=== PATIENT | female | born 2000 | race Caucasian/White ===

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

== ENCOUNTER 2019-01-12 18:08 | Emergency (ER) | payer OTHER ==
--- NOTE | 2019-01-12 18:11 | ERPHSYRPT ---
- History of Present Illness Time Seen by Provider: 01/12/19 18:11 Source: patient, family Exam Limitations: no limitations Physician History: 18 y/o right handed white female presents with 1 week h/o right wrist pain. no direct trauma. Occurred: last week Method of Injury: other (no injury) Quality: aching, other (numbness) Severity of Pain-Max: mild Severity of Pain-Current: mild Extremities Pain Location: wrist: right Modifying Factors: Improves With: movement Associated Symptoms: none Allergies/Adverse Reactions: No Known Drug Allergies Allergy (Verified 12/24/18 18:24) Hx Tetanus, Diphtheria Vaccination/Date Given: Yes Hx Influenza Vaccination/Date Given: No Hx Pneumococcal Vaccination/Date Given: No - Review of Systems Constitutional: No Symptoms Eyes: No Symptoms Ears, Nose, & Throat: No Symptoms Respiratory: No Symptoms Cardiac: No Symptoms Abdominal/Gastrointestinal: No Symptoms Genitourinary Symptoms: No Symptoms Musculoskeletal: Joint Pain (right wrist) Skin: No Symptoms Neurological: No Symptoms Psychological: No Symptoms Endocrine: No Symptoms Hematologic/Lymphatic: No Symptoms Immunological/Allergic: No Symptoms All Other Systems: Reviewed and Negative - Past Medical History Pertinent Past Medical History: Yes Neurological History: No Pertinent History ENT History: No Pertinent History Cardiac History: No Pertinent History Respiratory History: Asthma Endocrine Medical History: Hypothyroidism Musculoskeletal History: No Pertinent History GI Medical History: No Pertinent History History: No Pertinent History Psycho-Social History: No Pertinent History Female Reproductive Disorders: No Pertinent History - Past Surgical History Past Surgical History: Yes Neuro Surgical History: No Pertinent History Cardiac: No Pertinent History Respiratory: No Pertinent History Gastrointestinal: Cholecystectomy Genitourinary: No Pertinent History Musculoskeletal: No Pertinent History Female Surgical History: Section - Social History Smoking Status: Never smoker Exposure to second hand smoke: Yes Drug Use: none Patient Lives Alone: No - Nursing Vital Signs Nursing Vital Signs: Initial Vital Signs Temperature 99.0 F 01/12/19 18:16 Pulse Rate 85 01/12/19 18:16 Respiratory Rate 18 01/12/19 18:16 Blood Pressure 116/69 01/12/19 18:16 O2 Sat by Pulse Oximetry 95 01/12/19 18:16 Pain Scale Pain Intensity 9 - Physical Exam General Appearance: no apparent distress, alert, anxiety Eyes, Ears, Nose, Throat Exam: normal ENT inspection, moist mucous membranes Neck Exam: normal inspection, non-tender, supple, full range of motion Cardiovascular/Respiratory Exam: chest non-tender Abdominal Exam: non-tender Back Exam: normal inspection, normal range of motion, No CVA tenderness, No vertebral tenderness Shoulder Exam: normal inspection, non-tender, no evidence of injury, normal ROM Elbow/Forearm Exam: normal inspection, non-tender, no evidence of injury, normal ROM Wrist Exam: normal inspection, no evidence of injury, normal ROM, bone tenderness, soft tissue tenderness Hand Exam: normal inspection, non-tender, no evidence of injury, normal ROM Neuro/Tendon Exam: normal sensation, normal motor functions, normal tendon functions Mental Status Exam: alert, oriented x 3, cooperative Skin Exam: normal color, warm, dry SpO2 Interpretation: normal O2 Delivery: Room Air Ordered Tests: Active Orders 24 hr Category Date Time Status WRIST (MIN 3 VIEWS) Stat Exams 01/12/19 19:57 Taken - Progress Progress: unchanged Progress Note: 01/12/19 20:23 xray right wrist-no acute fx or dislocation Counseled pt/family regarding: diagnosis, need for follow-up, rad results - Departure Departure Disposition: Home Clinical Impression: Wrist pain, right Condition: Stable Critical Care Time: No Referrals: YVETTE GOMEZ MD [Primary Care Provider] - Additional Instructions: ice pack to area 3 times daily for 2 days. follow up with primary doctor for persistent symptoms Prescriptions: Cyclobenzaprine HCl 10 mg [Cyclobenzaprine 10 MG] 10 mg PO TID #10 tablet Naproxen 500 mg [Naprosyn 500 MG] 500 mg PO BID #10 tablet
[2019-01-12 19:11] VITALS: PULSE 80; O2SAT 100
[2019-01-12] MEDS ORDERED: Cyclobenzaprine 10 MG PO ONE (20:25)
[2019-01-12] MEDS ORDERED: Naprosyn 500 MG PO ONE (20:26)
[2019-01-12] MEDS ORDERED: Cyclobenzaprine 10 MG ONE (20:31)
[2019-01-12 21:40] VITALS: BP 116/67
--- NOTE | 2019-01-13 09:19 | XRAY ---
Indication: Medial bruising. No known injury. Comparison: None 3 views of the right wrist obtained. No bony, articular, or soft tissue abnormalities.
== END 2019-01-12 21:10 | disposition home or self-care (01) ==
LOC: ED 18:08
DX: M25.531 Pain in right wrist (principal); R20.0 Anesthesia of skin
CPT/HCPCS: 73110; 99284; A9270-GY

== ENCOUNTER 2019-01-19 10:17 | Emergency (ER) | payer OTHER ==
--- NOTE | 2019-01-19 11:29 | ERPHSYRPT ---
- History of Present Illness Time Seen by Provider: 01/19/19 10:50 Source: patient Exam Limitations: clinical condition Patient Subjective Stated Complaint: states began having some vaginal bleeding two days ago. was seen in [facility] and had blood work done. today woke up with increased vaginal bleeding and some slight brown discharge. also having some lower abd cramping today Triage Nursing Assessment: ambulated to room per self. skin w/d, color normal, resp easy. abd soft. small amt brown discharge noted on paper after patient had voided. Physician History: PATIENT IS A -2, PARA-1, 7-8 WEEKS GESTATION, COMPLAINS OF VAGINAL BLEEDING WITH LOWER ABDOMINAL CRAMPING OVER THE PAST 2 DAYS, EVALUATED AT CLINIC YESTERDAY WITH A QUANTITATIVE SERUM CONSISTENT WITH 7-8 GESTATION. DENIES NAUSEA, EMESIS, PASSAGE OF CLOTS OR TISSUE. UNSURE OF LAST MENSTRUAL, HAD AN EPISODE OF VAGINAL BLEEDING 2 WEEKS AGO. Timing/Duration: day(s) Activites at Onset: none Quality: aching, cramping Onset Location: pelvic pain Pain Radiation: none Severity of Pain-Max: mild Severity of Pain-Current: mild Prior abdominal problems: none Sexual intercourse history: non-contributory Modifying Factors: Improves With: nothing Allergies/Adverse Reactions: No Known Drug Allergies Allergy (Verified 01/19/19 10:34) Home Medications: No Reportable Medications [No Reported Medications] 01/19/19 [History] Hx Tetanus, Diphtheria Vaccination/Date Given: No Hx Influenza Vaccination/Date Given: Yes Hx Pneumococcal Vaccination/Date Given: No - Review of Systems Constitutional: No Fever, No Chills Eyes: No Symptoms Ears, Nose, & Throat: No Symptoms Respiratory: No Cough, No Dyspnea Cardiac: No Symptoms, No Chest Pain, No Edema, No Syncope Abdominal/Gastrointestinal: Abdominal Pain, No Nausea, No Vomiting, No Diarrhea Genitourinary Symptoms: Vaginal Bleeding, No Dysuria Musculoskeletal: No Symptoms, No Back Pain, No Neck Pain Skin: No Rash Neurological: No Dizziness, No Focal Weakness, No Sensory Changes Psychological: No Symptoms Endocrine: No Symptoms All Other Systems: Reviewed and Negative - Past Medical History Pertinent Past Medical History: Yes Neurological History: No Pertinent History ENT History: No Pertinent History Cardiac History: No Pertinent History Respiratory History: Asthma Endocrine Medical History: Hypothyroidism Musculoskeletal History: No Pertinent History GI Medical History: No Pertinent History History: No Pertinent History Psycho-Social History: Depression Female Reproductive Disorders: No Pertinent History - Past Surgical History Past Surgical History: Yes Neuro Surgical History: No Pertinent History Cardiac: No Pertinent History Respiratory: No Pertinent History Gastrointestinal: Cholecystectomy Genitourinary: No Pertinent History Musculoskeletal: No Pertinent History Female Surgical History: Section - Social History Smoking Status: Never smoker Exposure to second hand smoke: No Drug Use: none Patient Lives Alone: No - Female History Hx Last Menstrual Period: 01/04/2019 Hx Now: Yes - Nursing Vital Signs Nursing Vital Signs: Initial Vital Signs Temperature 97.5 F 01/19/19 10:20 Pulse Rate 70 01/19/19 10:20 Respiratory Rate 16 01/19/19 10:20 Blood Pressure 121/67 01/19/19 10:20 O2 Sat by Pulse Oximetry 100 01/19/19 10:20 Pain Scale Pain Intensity 2 - Physical Exam General Appearance: no apparent distress, alert Eye Exam: PERRL/EOMI, eyes nml inspection Ears, Nose, Throat Exam: normal ENT inspection, TMs normal, pharynx normal, moist mucous membranes Neck Exam: normal inspection, non-tender, supple, full range of motion Respiratory Exam: normal breath sounds, lungs clear, No respiratory distress Cardiovascular Exam: regular rate/rhythm, normal heart sounds, normal peripheral pulses Gastrointestinal/Abdomen Exam: soft, normal bowel sounds, tenderness (MINIMAL SUPRAPUBIC TENDERNESS), No mass Pelvic Exam: normal external exam, vaginal bleeding (SCANT BLOOD OVER CERVIX, CERVICAL OS CLOSED, UTERINE SIZE 4-5 WEEKS, MOBILE NONTENDER.) Back Exam: normal inspection, normal range of motion, No CVA tenderness, No vertebral tenderness Extremity Exam: normal inspection, normal range of motion, pelvis stable Neurologic Exam: alert, oriented x 3, cooperative, finishing manager II-XII nml as tested, normal mood/affect, sensation nml, No motor deficits Skin Exam: normal color, warm, dry Lymphatic Exam: No adenopathy SpO2 Interpretation: normal SpO2: 97 - Radiology Ultrasound Exam Pelvis Ultrasound: discussed w/radiologist (CONSISTENT WITH THICKENED ENDOMETRIUM, NO EVIDENCE OF POLE) Ordered Tests: Active Orders 24 hr Category Date Time Status OB TRANSVAGINAL [US] Stat Exams 01/19/19 11:21 Ordered - Progress Progress Note: 01/19/19 11:34 [facility] 01/18/2019 QUANT HCG 84,702, URINE NEGATIVE 01/19/19 12:30, PELVIC ULTRASOUND CONSISTENT WITH THICKENED ENDOMETRIUM, NO EVIDENCE OF POLE Counseled pt/family regarding: diagnosis, need for follow-up, rad results - Departure Departure Disposition: Home Clinical Impression: Threatened in early Condition: Critical Care Time: No Referrals: YVETTE GOMEZ MD [Primary Care Provider] - Additional Instructions: CONSULT YOUR PRIMARY CARE PROVIDER FOR FOLLOWUP AND REPEAT SERUM TEST AND ULTRASOUND IN 1 WEEK.
--- NOTE | 2019-01-19 12:58 | XRAY ---
Indication: with vaginal bleeding. Two-dimensional transvaginal early OB ultrasound performed. Comparison: None Uterus is retroverted measuring 6.5 x 3.9 x 4.5 cm. Myometrium appears homogeneous. Endometrial stripe measures 8.4 mm in thickness. No endometrial cavity mass, gestational sac, or fluid collection. Right ovary measures 2.0 x 1.8 x 1.8 cm and the left measures 2.8 x 1.5 x 1.5 cm. Normal color perfusion bilaterally. 1.4 cm dominant left ovary cyst. No suspicious adnexal mass, free fluid, or evidence for ectopic . Impression: 1.5 cm left ovary cyst in a otherwise negative transvaginal early OB ultrasound. Specifically no evidence for intrauterine/ectopic .
[2019-01-19 12:59] VITALS: BP 111/80; PULSE 92; O2SAT 98
== END 2019-01-19 13:02 | disposition home or self-care (01) ==
LOC: ED 10:17
DX: O20.0 Threatened abortion (principal); Z3A.08 8 weeks gestation of pregnancy
CPT/HCPCS: 76817; 99284

== ENCOUNTER 2019-02-20 06:32 | Emergency (ER) | payer OTHER | END 2019-02-20 08:13 | disposition home or self-care (01) | LOC: ED 06:32 ==

== ENCOUNTER 2019-07-28 11:10 | Emergency (ER) | payer OTHER ==
--- NOTE | 2019-07-28 11:28 | ERPHSYRPT ---
- History of Present Illness Time Seen by Provider: 07/28/19 11:28 Source: patient Exam Limitations: no limitations Physician History: 19 y/o white female presents with sudden onset of right forehead shooting pain. denies injury. did not use any meds for pain. pt has a remote h/o head injury in 2012. occasionally gets twinges of head pain. no visual changes. denies this headache is the worst she has ever had. Timing/Duration: today, intermittent Quality: sharpness Head Pain Location: frontal (right) Severity of Pain-Max: mild Severity of Pain-Current: mild Recent Head Trauma: no recent headache/trauma, occasional headaches Modifying Factors: Improves With: other (nothing) Previous symptoms: same symptoms as today Allergies/Adverse Reactions: No Known Drug Allergies Allergy (Verified 07/28/19 11:33) Home Medications: No Reportable Medications [No Reported Medications] 07/28/19 [History] Hx Tetanus, Diphtheria Vaccination/Date Given: No Hx Influenza Vaccination/Date Given: No Hx Pneumococcal Vaccination/Date Given: No - Review of Systems Constitutional: No Symptoms Eyes: No Symptoms Ears, Nose, & Throat: No Symptoms Respiratory: No Symptoms Cardiac: No Symptoms Abdominal/Gastrointestinal: No Symptoms Genitourinary Symptoms: No Symptoms Musculoskeletal: No Symptoms Skin: No Symptoms Neurological: Headache Psychological: No Symptoms Endocrine: No Symptoms Hematologic/Lymphatic: No Symptoms Immunological/Allergic: No Symptoms All Other Systems: Reviewed and Negative - Past Medical History Pertinent Past Medical History: Yes Neurological History: No Pertinent History ENT History: No Pertinent History Cardiac History: No Pertinent History Respiratory History: Asthma Endocrine Medical History: Hypothyroidism Musculoskeletal History: No Pertinent History GI Medical History: No Pertinent History History: No Pertinent History Psycho-Social History: Depression Female Reproductive Disorders: No Pertinent History Other Medical History: Pre eclampsia and HELLP syndrome during - Past Surgical History Past Surgical History: Yes Neuro Surgical History: No Pertinent History Cardiac: No Pertinent History Respiratory: No Pertinent History Gastrointestinal: Cholecystectomy Genitourinary: No Pertinent History Musculoskeletal: No Pertinent History Female Surgical History: Section - Social History Smoking Status: Never smoker Exposure to second hand smoke: No Drug Use: none Patient Lives Alone: No - Nursing Vital Signs Nursing Vital Signs: Initial Vital Signs Temperature 97.6 F 07/28/19 11:22 Pulse Rate 66 07/28/19 11:22 Blood Pressure 107/61 07/28/19 11:22 O2 Sat by Pulse Oximetry 100 07/28/19 11:22 Pain Scale Pain Intensity 9 - Physical Exam General Appearance: no apparent distress, alert, anxiety Eye Exam: PERRL/EOMI, eyes nml inspection Ears, Nose, Throat Exam: normal ENT inspection Neck Exam: normal inspection, non-tender, supple, full range of motion Respiratory Exam: No chest tenderness, No respiratory distress Gastrointestinal/Abdominal Exam: No tenderness Back Exam: normal inspection, normal range of motion, No CVA tenderness, No vertebral tenderness Extremity Exam: normal inspection, normal range of motion, pelvis stable Mental Status Exam: alert, oriented x 3, cooperative fiberglass laminator Exam: normal hearing, normal speech, PERRL Motor/Sensory Exam: no motor deficit, no sensory deficit, no pronator drift Skin Exam: normal color, warm, dry Lymphatic Exam: No adenopathy SpO2 Interpretation: normal O2 Delivery: Room Air - Course Nursing assessment & vital signs reviewed: Yes - Progress Progress: unchanged Air Movement: good Progress Note: 07/28/19 11:[address] head. pt declines. pt told to return to ED if sx persistent or worsen Blood Culture(s) Obtained: No Antibiotics given: No Counseled pt/family regarding: diagnosis, need for follow-up - Departure Departure Disposition: Home Clinical Impression: Headache Condition: Stable Critical Care Time: No Referrals: YVETTE GOMEZ MD [Primary Care Provider] - Additional Instructions: tylenol and ibuprofen for pain. ice pack to area three times daily. follow up with primary doctor for further management
[2019-07-28 11:33] VITALS: BP 107/61; PULSE 66; O2SAT 100
== END 2019-07-28 12:08 | disposition home or self-care (01) ==
LOC: ED 11:10
DX: R51 Headache (principal)
CPT/HCPCS: 99283

== ENCOUNTER 2020-08-15 07:48 | Emergency (ER) | payer OTHER ==
--- NOTE | 2020-08-15 07:50 | ERPHSYRPT ---
- History of Present Illness Time Seen by Provider: 08/15/20 07:50 Source: patient Exam Limitations: no limitations Physician History: This is a 20-year-old white female who has no history of any bleeding or clotting disorders and presents with an acute onset of nosebleed which occurred approximately and half hours prior to evaluation. Patient was at work. Patient denies picking her nose or being injured in this area. Patient states that her nosebleed spontaneously stopped. Patient has never had a spontaneous nosebleed in the past. Patient denies using excessive aspirin or NSAIDs. She has no liver disease. Timing/Duration: abrupt onset, this morning Severity: mild Prearrival Treatment: no prearrival treatment Modifying Factors: Improves With: nothing Associated Symptoms: denies symptoms, epistaxis (Prior to arrival. No epistaxis on arrival to the emergency department), No dizziness, No headache Allergies/Adverse Reactions: phentermine [From Adipex-P] Allergy (Verified 08/15/20 08:00) Home Medications: No Reportable Medications [No Reported Medications] 07/28/19 [History] Hx Tetanus, Diphtheria Vaccination/Date Given: No Hx Influenza Vaccination/Date Given: No Hx Pneumococcal Vaccination/Date Given: No Travel Risk - International Travel Have you traveled outside of the country in past 3 weeks: No - Coronavirus Screening Are you exhibiting any of the following symptoms?: No Close contact with a COVID-19 positive Pt in past 14-21 Days: No - Review of Systems Constitutional: No Symptoms Eyes: No Symptoms Ears, Nose, & Throat: Epistaxis Respiratory: No Symptoms Cardiac: No Symptoms Abdominal/Gastrointestinal: No Symptoms Genitourinary Symptoms: No Symptoms Musculoskeletal: No Symptoms Skin: No Symptoms Neurological: No Symptoms Psychological: No Symptoms Endocrine: No Symptoms Hematologic/Lymphatic: No Symptoms Immunological/Allergic: No Symptoms All Other Systems: Reviewed and Negative - Past Medical History Pertinent Past Medical History: Yes Neurological History: No Pertinent History ENT History: No Pertinent History Cardiac History: No Pertinent History Respiratory History: Asthma Endocrine Medical History: Hypothyroidism Musculoskeletal History: No Pertinent History GI Medical History: No Pertinent History History: No Pertinent History Psycho-Social History: Depression Female Reproductive Disorders: No Pertinent History Other Medical History: Pre eclampsia and HELLP syndrome during - Past Surgical History Past Surgical History: Yes Neuro Surgical History: No Pertinent History Cardiac: No Pertinent History Respiratory: No Pertinent History Gastrointestinal: Cholecystectomy Genitourinary: No Pertinent History Musculoskeletal: No Pertinent History Female Surgical History: Section - Social History Smoking Status: Never smoker Exposure to second hand smoke: No Drug Use: none Patient Lives Alone: No - Nursing Vital Signs Nursing Vital Signs: Initial Vital Signs Temperature 97.1 F 08/15/20 07:52 Pulse Rate 58 L 08/15/20 07:52 Respiratory Rate 16 08/15/20 07:52 Blood Pressure 115/70 08/15/20 07:52 O2 Sat by Pulse Oximetry 99 08/15/20 07:52 Pain Scale Pain Intensity 8 - Physical Exam General Appearance: no apparent distress, alert Eye Exam: bilateral eye: normal inspection, PERRL, EOMI Ear Exam: bilateral ear: auricle normal Nasal Exam: normal inspection, No active bleeding, No dried blood, No foreign body Throat Exam: normal Neck Exam: trachea midline Cardiovascular/Respiratory Exam: chest non-tender, no respiratory distress Abdominal Exam: non-tender Neurologic Exam: alert, oriented x 3, cooperative, brim setter II-XII nml as tested, normal mood/affect, nml cerebellar function, nml station & gait, sensation nml Skin Exam: normal color, warm, dry SpO2 Interpretation: normal O2 Delivery: Room Air - Course Nursing assessment & vital signs reviewed: Yes - Progress Progress: unchanged Progress Note: 08/15/20 08:21 This patient has normal orthostatic vital signs. There is no evidence of any epistaxis at this time. There is no emergent issue. I did offer the patient a work-up including CBC, PT INR, liver function tests. I also offered her Kel- Synephrine nasal spray and a nose clamp for home. Patient does not desire a work-up at this time. She will take the Kel-Synephrine nasal spray in the nose clamp. Counseled pt/family regarding: diagnosis, need for follow-up - Departure Departure Disposition: Home Clinical Impression: Epistaxis Condition: Stable Critical Care Time: No Referrals: YVETTE GOMEZ MD [Primary Care Provider] - Additional Instructions: Use the Kel-Synephrine nasal spray as directed on the package. Do not pick your nose or blow your nose hard. Use the nasal clamp as instructed if needed. Follow-up with your primary care physician for further management. Return to the emergency department if you actually have active nasal bleeding. Forms: Work/School Release Form
[2020-08-15 07:59] VITALS: BP 115/70; PULSE 58; O2SAT 99
[2020-08-15] MEDS ORDERED: NEOSYNEPHRINE 0.5% NASAL SPRAY/DROPS NS ONE (08:16)
[2020-08-15] MEDS ORDERED: NEOSYNEPHRINE 0.5% NASAL SPRAY/DROPS ONE (08:27)
== END 2020-08-15 08:43 | disposition home or self-care (01) ==
LOC: ED 07:48
DX: R04.0 Epistaxis (principal)
CPT/HCPCS: 99283; A9270-GY

== ENCOUNTER 2020-10-30 21:54 | Emergency (ER) | payer OTHER ==
[2020-10-30 22:54] LABS: Appearance SLIGHTLY CLOUDY (CLEAR); Bilirubin NEGATIVE (NEGATIVE); Blood NEGATIVE Ery/ul (0-5); Epithelial Cells RARE /HPF (FEW); Glucose NEGATIVE (NEGATIVE); Ketones NEGATIVE (NEGATIVE); Leukocyte Esterase NEGATIVE (NEGATIVE); Mucus SLIGHT /HPF (NEGATIVE); Nitrite NEGATIVE (NEGATIVE); Protein,Urine Dip NEGATIVE (Negative); Urobilinogen NEGATIVE mg/dL (0-1); WBC 0-2 /HPF (0-5)
[2020-10-30] MEDS ORDERED: DELTASONE 20 MG PO ONE (23:16)
[2020-10-30] MEDS ORDERED: VENTOLIN COMMON CANISTER IH STA (23:17)
[2020-10-30] MEDS ORDERED: DELTASONE 20 MG ONE (23:20)
--- NOTE | 2020-10-31 01:07 | ERPHSYRPT ---
- History of Present Illness Time Seen by Provider: 10/30/20 22:10 Source: patient Exam Limitations: no limitations Patient Subjective Stated Complaint: pt states she has had a cough and sore throat for the last week. states pain in ribs from coughing Triage Nursing Assessment: pt alert and oriented, answers questions approp. pt ambulatory with steady gait noted. respirations nonlabored with lungs cta. pt's voice scratchy and cracking. skin pink warm and dry. Physician History: Patient is a 20-year-old female presents to our ED with complaints of a dry cough that has been present for 1 week. Patient states the cough is making her throat sore, voice hoarse, and sore ribs. Patient has no shortness of breath. No fever. No trauma. No chest pain. No nausea vomiting or diaphoresis. Symptoms are mild to moderate in intensity. Coughing reproduces symptoms. Patient voices no other complaints or concerns at this time. Timing/Duration: week(s) (1 week) Severity: moderate Modifying Factors: Improves With: nothing Associated Symptoms: cough, No nausea, No vomiting, No shortness of breath, No diaphoresis, No chills, No fever Allergies/Adverse Reactions: phentermine [From Adipex-P] Allergy (Verified 08/15/20 08:00) Hx Tetanus, Diphtheria Vaccination/Date Given: Yes Hx Influenza Vaccination/Date Given: No Hx Pneumococcal Vaccination/Date Given: No Immunizations Up to Date: Yes Travel Risk - International Travel Have you traveled outside of the country in past 3 weeks: No - Coronavirus Screening Are you exhibiting any of the following symptoms?: Yes Symptoms: Cough: New Onset Close contact with a COVID-19 positive Pt in past 14-21 Days: No - Vaccine Status Have you recieved a Covid-19 vaccination: No - Review of Systems Constitutional: No Symptoms, No Fever, No Chills Eyes: No Symptoms Ears, Nose, & Throat: No Symptoms Respiratory: No Symptoms, No Cough, No Dyspnea Cardiac: No Symptoms, No Chest Pain, No Edema, No Syncope Abdominal/Gastrointestinal: No Symptoms, No Abdominal Pain, No Nausea, No Vomiting, No Diarrhea Genitourinary Symptoms: No Symptoms, No Dysuria Musculoskeletal: No Symptoms, No Back Pain, No Neck Pain Skin: No Symptoms, No Rash Neurological: No Symptoms, No Dizziness, No Focal Weakness, No Sensory Changes Psychological: No Symptoms Endocrine: No Symptoms Hematologic/Lymphatic: No Symptoms Immunological/Allergic: No Symptoms All Other Systems: Reviewed and Negative - Past Medical History Pertinent Past Medical History: Yes Neurological History: No Pertinent History ENT History: No Pertinent History Cardiac History: No Pertinent History Respiratory History: Asthma Endocrine Medical History: Hypothyroidism Musculoskeletal History: No Pertinent History GI Medical History: No Pertinent History History: No Pertinent History Psycho-Social History: Depression Female Reproductive Disorders: No Pertinent History Other Medical History: Pre eclampsia and HELLP syndrome during - Past Surgical History Past Surgical History: Yes Neuro Surgical History: No Pertinent History Cardiac: No Pertinent History Respiratory: No Pertinent History Gastrointestinal: Cholecystectomy Genitourinary: No Pertinent History Musculoskeletal: No Pertinent History Female Surgical History: Section Other Surgical History: August 2017 C section - Social History Smoking Status: Never smoker Exposure to second hand smoke: No Drug Use: none Patient Lives Alone: No - Female History Hx Last Menstrual Period: 1 month Hx Now: No - Nursing Vital Signs Nursing Vital Signs: Initial Vital Signs Temperature 97.8 F 10/30/20 22:03 Pulse Rate 91 H 10/30/20 22:03 Respiratory Rate 16 10/30/20 22:03 Blood Pressure 135/65 10/30/20 22:03 O2 Sat by Pulse Oximetry 96 10/30/20 22:03 Pain Scale Pain Intensity 4 - Physical Exam General Appearance: no apparent distress, alert, other (Mild laryngitis observed physical examination.) Eye Exam: PERRL/EOMI, eyes nml inspection Ears, Nose, Throat Exam: normal ENT inspection, TMs normal, pharynx normal, moist mucous membranes, other (No tonsillar exudate. Uvula at midline. No intraoral lesions. No sublingual masses.), No tonsillar exudate Neck Exam: normal inspection, non-tender, supple, full range of motion Respiratory Exam: normal breath sounds, lungs clear, other (Rhinorrhea and nasal congestion observed. Lungs sounds are mildly coarse. No respiratory distress.), No chest tenderness, No respiratory distress Cardiovascular Exam: regular rate/rhythm, normal heart sounds, normal peripheral pulses Gastrointestinal/Abdomen Exam: soft, normal bowel sounds, No tenderness, No mass Back Exam: normal inspection, normal range of motion, No CVA tenderness, No vertebral tenderness Extremity Exam: normal inspection, normal range of motion, pelvis stable Neurologic Exam: alert, oriented x 3, cooperative, normal mood/affect, nml cerebellar function, nml station & gait, sensation nml, No motor deficits Skin Exam: normal color, warm, dry, No rash Lymphatic Exam: No adenopathy SpO2 Interpretation: normal SpO2: 100 O2 Delivery: Room Air - Course Nursing assessment & vital signs reviewed: Yes - Radiology Exams Chest X-ray Interpretation: Interpreted by me (Lungs are clear. No consolidation. No infiltrate. Normal cardiac silhouette. Normal bony thorax.) Ordered Tests: Active Orders 24 hr Category Date Time Status CHEST 1 VIEW (PORTABLE) Stat Exams 10/30/20 23:15 Taken HCG,QUALITATIVE URINE Stat Lab 10/30/20 22:34 Completed UA W/RFX UR CULTURE Stat Lab 10/30/20 22:34 Completed Respiratory MDI UD RT 10/30/20 23:35 Active Respiratory Therapy Assessment DAILY RT 10/30/20 23:35 Active Medication Summary Discontinued Medications Generic Name Dose Route Start Last Admin Trade Name Freq PRN Reason Stop Dose Admin Albuterol Sulfate 4 puff 10/30/20 23:17 10/30/20 23:34 Ventolin Common Canister IH 10/30/20 23:18 4 puff ONCE STA Administration Prednisone 60 mg 10/30/20 23:16 10/30/20 23:20 Deltasone 20 Mg PO 10/30/20 23:17 60 mg STAT ONE Administration Prednisone Confirm 10/30/20 23:20 Deltasone 20 Mg Administered 10/30/20 23:21 Dose 60 mg .ROUTE .STK-MED ONE Lab/Rad Data: Laboratory Results 10/30/20 10/30/20 Range/Units 22:34 22:34 Urine Color YELLOW (YELLOW) Urine Appearance SLIGHTLY CLOUDY (CLEAR) Urine pH 6.0 (5-6) Ur Specific Lucas 1.020 (1.005-1.025) Urine Protein NEGATIVE (Negative) Urine Ketones NEGATIVE (NEGATIVE) Urine Blood NEGATIVE (0-5) William/ul Urine Nitrite NEGATIVE (NEGATIVE) Urine Bilirubin NEGATIVE (NEGATIVE) Urine Urobilinogen NEGATIVE (0-1) mg/dL Ur Leukocyte Esterase NEGATIVE (NEGATIVE) Urine WBC (Auto) 0-2 (0-5) /HPF Urine RBC (Auto) NONE (0-2) /HPF U Epithel Cells (Auto) RARE (FEW) /HPF Urine Bacteria (Auto) NONE (NEGATIVE) /HPF Urine Mucus (Auto) SLIGHT (NEGATIVE) /HPF Urine Culture Reflexed NO (NO) Urine Glucose NEGATIVE (NEGATIVE) mg/dL Urine HCG, Qual NEGATIVE (Negative) - Progress Progress: improved Progress Note: Patient received a albuterol inhaler treatment as well as steroids. Lungs are clear. Patient has not been observed to cough in our ED since her treatment. Patient states she feels better. Chest x-ray negative for acute cardiopulmonary pathology. Urinalysis negative for UTI. test negative. No indication for further work-up at this time. Patient symptomatically improved. Will discharge at this time. A prescription for prednisone and oral steroids for the patient's pharmacy. Patient voices no other complaints at this time. She agrees to follow-up with her primary care doctor within 48 hours for reevaluation. 10/31/20 01:17 10/31/20 01:19 Counseled pt/family regarding: diagnosis, rad results - Departure Departure Disposition: Home Clinical Impression: URI (upper respiratory infection), Bronchitis Condition: Stable Critical Care Time: No Referrals: YVETTE GOMEZ MD [Primary Care Provider] - Additional Instructions: Discharge/Care Plan MARQUEZ BELTRÁN SCOTT SEE was seen on 10/31/20 in the Emergency Room. The patient was counseled regarding Diagnosis,Lab results, Imaging studies, need for follow up and when to return to the Emergency Room. Prescriptions given: Discharge Note I have spoken with the patient and/or caregivers. I have explained the patient's condition, diagnosis and treatment plan based on the information available to me at this time. I have answered the patient's and/or caregiver's questions and addressed any concerns. The patient and/or caregivers have as good understanding of the patient's diagnosis, condition and treatment plan as can be expected at this point. The vital signs have been stable. The patient's condition is stable and appropriate for discharge from the emergency department. The patient will pursue further outpatient evaluation with the primary care physician or other designated or consulting physician as outlined in the discharge instructions. The patient and/or caregivers are agreeable to this plan of care and follow-up instructions have been explained in detail. The patient and/or caregivers have received these instruction. The patient/and or caregivers are aware that any significant change in condition or worsening of symptoms should prompt an immediate return to this or the closest emergency department or call 911. Prescriptions: Prednisone 10 mg [Deltasone 10 mg] 40 mg PO DAILY 3 Days #12 tablet Albuterol 8 gm Mdi Hfa [Ventolin Hfa MDI] 8 gm IH Q4H #1 [id number]
[2020-10-31 01:44] VITALS: BP 97/57; PULSE 98; O2SAT 98
--- NOTE | 2020-10-31 08:51 | XRAY ---
Indication: Pneumonia. Comparison: January 13, 2017. Portable chest again demonstrates normal heart, lungs, and bony thorax.
== END 2020-10-31 01:42 | disposition home or self-care (01) ==
LOC: ED 21:54
DX: J06.9 Acute upper respiratory infection, unspecified (principal); J40 Bronchitis, not specified as acute or chronic
CPT/HCPCS: 71045; 81001; 84703; 94640; 99284; A9270-GY

== ENCOUNTER 2021-07-01 18:55 | Emergency (ER) | payer OTHER ==
[2021-07-01 19:20] VITALS: BP 108/79; PULSE 98; O2SAT 99
[2021-07-01 19:51] LABS: Appearance SLIGHTLY CLOUDY (CLEAR); Bilirubin NEGATIVE (NEGATIVE); Blood NEGATIVE Ery/ul (0-5); Epithelial Cells RARE /HPF (FEW); Glucose NEGATIVE (NEGATIVE); Ketones NEGATIVE (NEGATIVE); Leukocyte Esterase NEGATIVE (NEGATIVE); Mucus SLIGHT /HPF (NEGATIVE); Nitrite NEGATIVE (NEGATIVE); Protein,Urine Dip NEGATIVE (Negative); Urobilinogen NEGATIVE mg/dL (0-1)
--- NOTE | 2021-07-01 19:52 | ERPHSYRPT ---
- History of Present Illness Time Seen by Provider: 07/01/21 19:19 Patient Subjective Stated Complaint: "I feel terrible." Triage Nursing Assessment: patient reported having fever, myalgias, and sore throat over the past week with reported fever of 102 at home. She denied treating her fever at home. She denied cough, dyspnea, chest pain, dysuria, hematuria, diarrhea, or constipation. Pupils 3mm bilateral. Oral mucosa pink/moist without ulcerations or lesions. Neck supple without lymphadenopathy. Symmetrical chest expansion. Hear tones S1/S2 RRR. Lungs vesicular without adventitious sounds. Physician History: 21 years old female presented in the ER with chief complaint of flulike symptoms since yesterday. Patient reports fever with chills and T-max of 102 prior to arrival which improved without any medication on presentation in the ER to 98 degree. Minimal nonproductive cough without difficulty breathing but does have sinus/nasal congestion with body aches fatigue tiredness, headache and weakness all over with lack of energy. Unvaccinated for COVID-19. Denies any vomiting or diarrhea. No obvious known sick contact. Patient wants to be tested for as well. Timing/Duration: yesterday, constant, gradual onset, worse Cough Quality/Degree: mild, dry cough Possible Cause: unknown cause Associated Symptoms: fever, chills, headache, muscle aches, nasal congestion Allergies/Adverse Reactions: phentermine [From Adipex-P] Allergy (Verified 07/01/21 19:05) Hx Tetanus, Diphtheria Vaccination/Date Given: Yes Hx Influenza Vaccination/Date Given: No Hx Pneumococcal Vaccination/Date Given: No Travel Risk - International Travel Have you traveled outside of the country in past 3 weeks: No - Coronavirus Screening Are you exhibiting any of the following symptoms?: No Close contact with a COVID-19 positive Pt in past 14-21 Days: No - Vaccine Status Have you recieved a Covid-19 vaccination: No - Review of Systems Constitutional: Fever, Chills, Fatigue, Weakness Eyes: No Symptoms Ears, Nose, & Throat: Throat Pain Respiratory: Cough Cardiac: No Symptoms Abdominal/Gastrointestinal: No Symptoms Genitourinary Symptoms: No Symptoms Musculoskeletal: Myalgias (Shock) Neurological: Headache Psychological: No Symptoms Endocrine: No Symptoms Hematologic/Lymphatic: No Symptoms Immunological/Allergic: No Symptoms - Past Medical History Pertinent Past Medical History: Yes Neurological History: No Pertinent History ENT History: No Pertinent History Cardiac History: No Pertinent History Respiratory History: Asthma Endocrine Medical History: Hypothyroidism Musculoskeletal History: No Pertinent History GI Medical History: No Pertinent History History: No Pertinent History Psycho-Social History: Depression Female Reproductive Disorders: No Pertinent History Other Medical History: Pre eclampsia and HELLP syndrome during - Past Surgical History Past Surgical History: Yes Neuro Surgical History: No Pertinent History Cardiac: No Pertinent History Respiratory: No Pertinent History Gastrointestinal: Cholecystectomy Genitourinary: No Pertinent History Musculoskeletal: No Pertinent History Female Surgical History: Section Other Surgical History: August 2017 C section - Social History Smoking Status: Never smoker Exposure to second hand smoke: No Drug Use: none Patient Lives Alone: No - Female History Hx Last Menstrual Period: 06/17/21 Hx Now: No - Nursing Vital Signs Nursing Vital Signs: Initial Vital Signs Temperature 98.8 F 07/01/21 18:56 Pulse Rate 98 H 07/01/21 18:56 Respiratory Rate 16 07/01/21 18:56 Blood Pressure 108/79 07/01/21 18:56 O2 Sat by Pulse Oximetry 99 07/01/21 18:56 Pain Scale Pain Intensity 10 - Physical Exam General Appearance: no apparent distress, alert Eye Exam: PERRL/EOMI, eyes nml inspection Ears, Nose, Throat Exam: pharyngeal erythema Neck Exam: normal inspection, non-tender, supple, full range of motion Respiratory Exam: normal breath sounds, lungs clear Cardiovascular Exam: regular rate/rhythm, normal heart sounds Gastrointestinal/Abdomen Exam: soft, normal bowel sounds, No tenderness Back Exam: normal inspection, normal range of motion Extremity Exam: normal inspection, normal range of motion Neurologic Exam: alert, oriented x 3, cooperative, unemployment examiner II-XII nml as tested Skin Exam: normal color SpO2 Interpretation: normal SpO2: 99 O2 Delivery: Room Air Ordered Tests: Active Orders 24 hr Category Date Time Status HCG,QUALITATIVE URINE Stat Lab 07/01/21 19:12 Completed INFLUENZA A+B OBEY Stat Lab 07/01/21 19:50 Completed UA W/RFX UR CULTURE Stat Lab 07/01/21 19:12 Completed Lab/Rad Data: Laboratory Results 07/01/21 07/01/21 07/01/21 Range/Units 19:50 19:50 19:12 Urine Color (YELLOW) Urine Appearance (CLEAR) Urine pH (5-6) Ur Specific [place] (1.005-1.025) Urine Protein (Negative) Urine Ketones (NEGATIVE) Urine Blood (0-5) William/ul Urine Nitrite (NEGATIVE) Urine Bilirubin (NEGATIVE) Urine Urobilinogen (0-1) mg/dL Ur Leukocyte Esterase (NEGATIVE) Urine WBC (Auto) (0-5) /HPF Urine RBC (Auto) (0-2) /HPF U Epithel Cells (Auto) (FEW) /HPF Urine Bacteria (Auto) (NEGATIVE) /HPF Urine Mucus (Auto) (NEGATIVE) /HPF Urine Culture Reflexed (NO) Urine Glucose (NEGATIVE) mg/dL Urine HCG, Qual NEGATIVE (Negative) Influenza Type A Ag NEGATIVE (NEGATIVE) Influenza Type B Ag NEGATIVE (NEGATIVE) Group A Strep Antibody NOT DETECTED (NEGATIVE) 07/01/21 Range/Units 19:12 Urine Color YELLOW (YELLOW) Urine Appearance SLIGHTLY CLOUDY (CLEAR) Urine pH 5.0 (5-6) Ur Specific [place] 1.020 (1.005-1.025) Urine Protein NEGATIVE (Negative) Urine Ketones NEGATIVE (NEGATIVE) Urine Blood NEGATIVE (0-5) William/ul Urine Nitrite NEGATIVE (NEGATIVE) Urine Bilirubin NEGATIVE (NEGATIVE) Urine Urobilinogen NEGATIVE (0-1) mg/dL Ur Leukocyte Esterase NEGATIVE (NEGATIVE) Urine WBC (Auto) NONE (0-5) /HPF Urine RBC (Auto) NONE (0-2) /HPF U Epithel Cells (Auto) RARE (FEW) /HPF Urine Bacteria (Auto) NONE (NEGATIVE) /HPF Urine Mucus (Auto) SLIGHT (NEGATIVE) /HPF Urine Culture Reflexed NO (NO) Urine Glucose NEGATIVE (NEGATIVE) mg/dL Urine HCG, Qual (Negative) Influenza Type A Ag (NEGATIVE) Influenza Type B Ag (NEGATIVE) Group A Strep Antibody (NEGATIVE) - Progress Progress: unchanged Air Movement: good Progress Note: 07/01/21 19:54 21 years old is evaluated for flulike symptoms. She is maintaining her vitals very well with oxygen saturation are around 99% on room air, not tachypneic or tachycardic. No signs of toxicity. Symptoms seems to be viral etiology could be COVID-19. Recommended testing for Covid/flu/strep. Patient does not want to wait for the results and wants to leave. She is counseled about supportive care and outpatient follow-up. Will call if anything turns out to be positive today. Otherwise she will call back for Covid results in couple of days. Blood Culture(s) Obtained: No Antibiotics given: No Counseled pt/family regarding: diagnosis, need for follow-up - Departure Departure Disposition: Home Clinical Impression: Acute viral syndrome Condition: Stable Critical Care Time: No Referrals: YVETTE GOMEZ MD [Primary Care Provider] - Follow up/PCP as directed (In 2 days for reevaluation) Instructions: Fever, Adult (DC), Coronavirus Disease 2019 (COVID-19) (DC) Additional Instructions: Follow contact/droplet precautions until your COVID-19 test results are back. Take Tylenol/ibuprofen as needed. Keep yourself well-hydrated. Return to ER for persistent high-grade fever, worsening cough, difficulty breathing or if develop intractable vomiting/diarrhea etc.
[2021-07-01 21:06] LABS: INFLUENZA A NEGATIVE (NEGATIVE); INFLUENZA B NEGATIVE (NEGATIVE)
== END 2021-07-01 20:00 | disposition home or self-care (01) ==
LOC: ED 18:55
DX: B34.9 Viral infection, unspecified (principal); R05.9 Cough, unspecified; R09.81 Nasal congestion; M79.10 Myalgia, unspecified site; R53.83 Other fatigue; R51.9 Headache, unspecified; R53.1 Weakness
CPT/HCPCS: 81001; 84703; 87400; 87651; 99283; U0003

== ENCOUNTER 2023-04-15 13:59 | Emergency (ER) | payer OTHER ==
[2023-04-15] MEDS ORDERED: MOTRIN 600 MG PO ONE (14:23)
[2023-04-15] MEDS ORDERED: MOTRIN 600 MG ONE (14:26)
[2023-04-15 14:32] VITALS: BP 115/84; PULSE 74; RESP 17; TEMP 98; O2SAT 99
--- NOTE | 2023-04-15 14:45 | XRAY ---
Indication: Pain and swelling. Comparison: None 3 view left knee demonstrates incidental tiny posterior fabella. No other bony, articular, or soft tissue abnormalities.
--- NOTE | 2023-04-15 15:27 | ERPHSYRPT ---
- History of Present Illness Time Seen by Provider: 04/15/23 14:01 Source: patient Exam Limitations: no limitations Patient Subjective Stated Complaint: C/O Left knee pain for 2 weeks. Patient states she is unsure what happened to her knee to cause the pain. She states she has not fallen or injured it in any way that she knows of. 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 Triage Nursing Assessment: Patient ambulated back to ER with a slow gait. Patient gaurding LLE; puting most weight on RLE during ambulated. SHe is alert and oriented; tearful. No SOB. Skin tone normal. Patient states she is unable to bend her left knee during assessment. Pedal pulse weak in both feet but present in both feet. Small, fading bruise present just anterior and distal to knee. No other skin abnormalities noted. Physician History: 23 years old morbidly obese female who presented in the ER with chief complaint of left knee pain for almost 2 weeks but started after she bent it underneath her right leg. She was having pain off and on and yesterday she heard some popping sound and today again while moving something heavy prior to arrival with moderate to severe sharp pain with popping sound. Reports associated swelling. Pain is more on the lateral side of knee. Denies any other direct trauma otherwise. On exam she has tenderness on the lateral aspect of the knee with reproducible pain on movements in any direction. No knee laxity noticed. She is given ibuprofen for symptomatic relief as she did not want anything parenterally. On reevaluation she is resting comfortably. X-rays showed some Carol but no other acute fracture dislocation. I did not appreciate any effusion on exam as well. Since patient cannot put any weight, placed in a knee immobilizer and recommended outpatient orthopedics follow-up. Discussed signs symptoms of worsening and return to ER which she seems understanding. Allergies/Adverse Reactions: hydrocodone Allergy (Verified 04/15/23 14:13) phentermine [From Adipex-P] Allergy (Verified 04/15/23 14:13) Hx Tetanus, Diphtheria Vaccination/Date Given: Yes Hx Influenza Vaccination/Date Given: No Hx Pneumococcal Vaccination/Date Given: No Immunizations Up to Date: Yes Travel Risk - International Travel Have you traveled outside of the country in past 3 weeks: No - Coronavirus Screening Are you exhibiting any of the following symptoms?: No - Vaccine Status Have you recieved a Covid-19 vaccination: No - Review of Systems Constitutional: No Symptoms Ears, Nose, & Throat: No Symptoms Respiratory: No Symptoms Cardiac: No Symptoms Abdominal/Gastrointestinal: No Symptoms Musculoskeletal: Joint Pain Skin: No Symptoms Neurological: No Symptoms Hematologic/Lymphatic: No Symptoms - Past Medical History Pertinent Past Medical History: Yes Neurological History: No Pertinent History ENT History: No Pertinent History Cardiac History: No Pertinent History Respiratory History: Asthma Endocrine Medical History: Hypothyroidism Musculoskeletal History: No Pertinent History GI Medical History: Gallbladder Disease History: No Pertinent History Psycho-Social History: Depression Female Reproductive Disorders: No Pertinent History Other Medical History: Pre eclampsia and HELLP syndrome during - Past Surgical History Past Surgical History: Yes Neuro Surgical History: No Pertinent History Cardiac: No Pertinent History Respiratory: No Pertinent History Gastrointestinal: Cholecystectomy Genitourinary: No Pertinent History Musculoskeletal: No Pertinent History Female Surgical History: Section Other Surgical History: August 2017 C section - Social History Smoking Status: Never smoker Exposure to second hand smoke: No Drug Use: none Patient Lives Alone: No (Son) - Female History Hx Last Menstrual Period: 2 this month Hx Now: No - Nursing Vital Signs Nursing Vital Signs: Initial Vital Signs Temperature 98 F 04/15/23 13:59 Pulse Rate 74 04/15/23 13:59 Respiratory Rate 17 04/15/23 13:59 Blood Pressure 115/84 04/15/23 13:59 O2 Sat by Pulse Oximetry 99 04/15/23 13:59 Pain Scale Pain Intensity 10 - Physical Exam General Appearance: no apparent distress Neck Exam: normal inspection, full range of motion Cardiovascular/Respiratory Exam: normal breath sounds, regular rate/rhythm Legs Exam: bilateral leg: non-tender, normal inspection, normal range of motion Knees Exam: right knee: non-tender, normal inspection, normal range of motion, left knee: bone tenderness, pain, soft tissue tenderness Ankle Exam: bilateral ankle: non-tender, normal inspection, normal range of motion, no evidence of injury Neuro/Tendon Exam: normal sensation Mental Status Exam: alert, oriented x 3, cooperative Skin Exam: normal color SpO2 Interpretation: normal SpO2: 99 O2 Delivery: Room Air Ordered Tests: Active Orders 24 hr Category Date Time Status KNEE (3 VIEWS) Stat Exams 04/15/23 14:14 Completed Medication Summary Discontinued Medications Generic Name Dose Route Start Last Admin Trade Name Hermelinda PRN Reason Stop Dose Admin Ibuprofen 600 mg 04/15/23 14:23 04/15/23 14:27 Ibuprofen 600 Mg Tablet PO 04/15/23 14:24 600 mg STAT ONE Administration Ibuprofen Confirm 04/15/23 14:26 Ibuprofen 600 Mg Tablet Administered 04/15/23 14:27 Dose 600 mg .ROUTE .STK-MED ONE - Progress Progress: improved Progress Note: 04/15/23 15:28 23 years old morbidly obese female who presented in the ER with chief complaint of left knee pain for almost 2 weeks but started after she bent it underneath her right leg. She was having pain off and on and yesterday she heard some popping sound and today again while moving something heavy prior to arrival with moderate to severe sharp pain with popping sound. Reports associated swelling. Pain is more on the lateral side of knee. Denies any other direct trauma otherwise. On exam she has tenderness on the lateral aspect of the knee with reproducible pain on movements in any direction. No knee laxity noticed. She is given ibuprofen for symptomatic relief as she did not want anything parenterally. On reevaluation she is resting comfortably. X-rays showed some Carol but no other acute fracture dislocation. I did not appreciate any effusion on exam as well. Since patient cannot put any weight, placed in a knee immobilizer and recommended outpatient orthopedics follow-up. Discussed signs symptoms of worsening and return to ER which she seems understanding. Counseled pt/family regarding: diagnosis, need for follow-up, rad results Medical Desision Making - Diagnostic Testing Diagnostic test were ordered, analyzed, and reviewed by me: Yes Radiological Interpretation: Reviewed by me - Risk of complications The pt has a mod risk of morbidity or mortality based on: Need for prescription drug management - Departure Departure Disposition: Home Clinical Impression: Left knee sprain Condition: Stable Critical Care Time: No Referrals: DOCTOR,NO FAMILY [Primary Care Provider] - Follow up/PCP as directed ORTHO - [facility] [NON-STAFF PHY W/O PRIVILEGES] - Follow up/PCP as directed (Tomorrow for reevaluation) Instructions: Knee Sprain (DC) Additional Instructions: Intermittent ice application. Tylenol/ibuprofen as needed. Follow-up with orthopedic surgery for reevaluation in the morning. Return to ER for any worsening Prescriptions: Ibuprofen 600 mg PO Q6HPRN PRN 10 Days #20 tablet PRN Reason: Pain
== END 2023-04-15 15:44 | disposition home or self-care (01) ==
LOC: ED 13:59
DX: S83.92XA Sprain of unspecified site of left knee, initial encounter (principal); X50.0XXA Overexertion from strenuous movement or load, initial encounter; Z28.310 Unvaccinated for COVID-19
CPT/HCPCS: 73562; 99282; L1830; A9270-GY

== ENCOUNTER 2025-01-21 09:56 | Emergency (ER) | payer OTHER ==
[2025-01-21 10:12] VITALS: RESP 16; TEMP 97
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
[2025-01-21] MEDS: Naprosyn 500 MG PO ONE (10:22)
[2025-01-21 11:22] VITALS: BP 143/86; PULSE 76; O2SAT 97
--- NOTE | 2025-01-21 19:48 | XRAY ---
Indication: Injury. Comparison: None 2 view left forearm obtained. No bony, articular, or soft tissue abnormalities.
--- NOTE | 2025-01-21 19:48 | XRAY ---
Indication: Injury. Comparison: None 3 view left wrist obtained. No bony, articular, or soft tissue abnormalities.
--- NOTE | 2025-01-21 19:49 | XRAY ---
Indication: Injury. Comparison: None 3 view left hand obtained. No bony, articular, or soft tissue abnormalities.
== END 2025-01-21 11:34 | disposition home or self-care (01) ==
LOC: ED 09:56
DX: S52.572A Other intraarticular fracture of lower end of left radius, initial encounter for closed fracture (principal); Y00.XXXA Assault by blunt object, initial encounter; Z79.899 Other long term (current) drug therapy

== ENCOUNTER 2025-04-15 14:40 | Emergency (ER) | payer OTHER ==
[2025-04-15 15:04] VITALS: RESP 16; TEMP 97; O2SAT 98
--- NOTE | 2025-04-15 15:21 | ERPHSYRPT ---
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, patient complains of left foot pain, describes pain as pin pricks, patient states she has had ligament tears in left foot and was supposed to have surgery but was unable to due to being Triage Nursing Assessment: patient presents to ed via private vehicle, patient able to walk into ed without complication, patient alert oriented x 4, skin p/w/d, pedal pulses present bilaterally, small amount of swelling noted to left foot, rates pain 02/04 Physician History: Left ankle pain, patient apparently worked a 16-hour shift yesterday and today she developed pain and numbness about her left ankle, she is supposed to be wearing a boot on her left ankle as prescribed by podiatry, she was supposed to have some type of surgery that they were going to schedule but then the patient became and she never followed up, The patient states that she had unprotected sex and is possible that she may be today Allergies/Adverse Reactions: hydrocodone Allergy (Verified 04/15/25 14:53) phentermine [From Adipex-P] Allergy (Verified 04/15/25 14:53) Home Medications: Metformin HCl 500 mg [Glucophage 500 MG] 500 mg PO BID 04/15/25 [History] Hx Tetanus, Diphtheria Vaccination/Date Given: Yes Hx Influenza Vaccination/Date Given: No Hx Pneumococcal Vaccination/Date Given: No Travel Risk - International Travel Have you traveled outside of the country in past 3 weeks: No - Emerging Infectious Disease Are you exhibiting symptoms associated with any current EIDs: No - Past Medical History Pertinent Past Medical History: Yes Neurological History: No Pertinent History ENT History: No Pertinent History Cardiac History: No Pertinent History Respiratory History: Asthma Endocrine Medical History: Hypothyroidism Musculoskeletal History: No Pertinent History GI Medical History: Gallbladder Disease History: No Pertinent History Psycho-Social History: Depression Female Reproductive Disorders: No Pertinent History Other Medical History: Pre eclampsia and HELLP syndrome during - Past Surgical History Past Surgical History: Yes Neuro Surgical History: No Pertinent History Cardiac: No Pertinent History Respiratory: No Pertinent History Gastrointestinal: Cholecystectomy Genitourinary: No Pertinent History Musculoskeletal: No Pertinent History Female Surgical History: Section Other Surgical History: August 2017 C section - Female History Hx Last Menstrual Period: 02/02/2025 Hx Now: No - Social History Smoking Status: Never smoker Exposure to second hand smoke: No Drug Use: none - Social Determinants of Health Will the patient participate in the screening: Yes Do you worry about a steady place to live?: No Do you have any problems with any of the following?: No known problems In the past 12 months,have you had to go without utilities?: No Transportation Issues: No Has anyone in your support network made you feel unsafe?: No Have you or anyone in your house had to go w/o enough food: No - Nursing Vital Signs Nursing Vital Signs: Initial Vital Signs Temperature 97 F 04/15/25 14:40 Pulse Rate 80 04/15/25 14:40 Respiratory Rate 16 04/15/25 14:40 Blood Pressure 141/91 04/15/25 14:40 O2 Sat by Pulse Oximetry 98 04/15/25 14:40 Pain Scale Pain Intensity 8 - Physical Exam General Appearance: alert Eyes, Ears, Nose, Throat Exam: moist mucous membranes Neck Exam: non-tender, supple Cardiovascular/Respiratory Exam: chest non-tender, normal breath sounds, regular rate/rhythm, no respiratory distress Gastrointestinal/Abdominal Exam: non-tender, guarding Back Exam: normal inspection, No vertebral tenderness Ankle Exam: left ankle: limited range of motion, pain, soft tissue tenderness, swelling Neuro/Tendon Exam: normal sensation, normal motor functions Mental Status Exam: alert, oriented x 3, cooperative Skin Exam: normal color, warm, dry SpO2 Interpretation: normal SpO2: 98 - Radiology Exams Left Ankle X-ray Interpretation: Interpreted by me, No Fracture, No Subluxation Ordered Tests: Active Orders 24 hr Category Date Time Status ANKLE (3 VIEWS) Stat Exams 04/15/25 15:44 Taken HCG QUALITATIVE, URINE Stat Lab 04/15/25 15:35 Completed Lab/Rad Data: Laboratory Results 04/15/25 Range/Units 15:35 Urine HCG, Qual NEGATIVE (NEGATIVE) - Progress Progress Note: 04/15/25 16:36 Discussed labs and x-ray results, recommend that she follow back up with podiatry; She will be given a walking boot - Departure Departure Disposition: Home Clinical Impression: Tendonitis of ankle, left Condition: Stable Critical Care Time: No Referrals: ALEJANDRA PEACOCK [PODIATRY STAFF, PODIATRY] - Follow up/PCP as directed Instructions: Tendinopathy (DC) Additional Instructions: call for follow up with Foot Doctor; ice 10-15 min, 3-4 times a day, Ibuprofen 2-3 tabs 3 times a day
[2025-04-15 15:41] LABS: HCG URINE TEST NEGATIVE (NEGATIVE)
[2025-04-15 16:02] VITALS: PULSE 74
[2025-04-15 16:44] VITALS: BP 119/83
--- NOTE | 2025-04-15 19:10 | XRAY ---
Indication: Pain. Comparison: None 3 view left ankle obtained. No bony, articular, or soft tissue abnormalities.
== END 2025-04-15 16:50 | disposition home or self-care (01) ==
LOC: ED 14:40
DX: M77.52 Other enthesopathy of left foot and ankle (principal); M25.572 Pain in left ankle and joints of left foot; Z79.84 Long term (current) use of oral hypoglycemic drugs